=== PATIENT | male | born 1940 | race African-American/Black ===

== ENCOUNTER 2022-11-27 00:27 | Emergency (ER) | payer MEDICARE ==
[~2022-11-27] VITALS: Ht 185.4 cm; Wt 81.0 kg
[2022-11-27 00:33] VITALS: BP 195/80
[2022-11-27] MEDS ORDERED: ASPIRIN 81MG TABLET PO ONE (01:00)
[2022-11-27] MEDS ORDERED: NITROGLYCERIN OINT 1GM/INCH UDPKT TD ONE (01:00)
== END 2022-11-27 05:04 | disposition left against medical advice (07) ==
LOC: ER 00:27
DX: R07.89 Other chest pain (principal); E11.9 Type 2 diabetes mellitus without complications; I25.2 Old myocardial infarction; Z98.890 Other specified postprocedural states
CPT/HCPCS: 93005; 99283